=== PATIENT | female | born 1940 | race Caucasian/White ===

== ENCOUNTER 2021-02-07 09:57 | Outpatient (REF) | payer MEDICARE, SELFPAY ==
--- NOTE | ~2021-02-07 | XR_ITS ---
EXAMINATION: XR CHEST CLINICAL INFORMATION: Atelectasis COMPARISON: January 28, 2018 TECHNIQUE: 2 views of the chest were obtained. FINDINGS: There is no evidence of acute parenchymal disease, pneumothorax, or pleural effusion. Heart upper limits of normal in size. No evidence of pulmonary edema. Linear scarring is seen within the right middle lobe. Status post previous right upper quadrant surgery. XR/XR chest 2V IMPRESSION: No acute disease.
--- NOTE | ~2021-02-07 | XR_ITS ---
EXAMINATION: XR ABDOMEN KUB CLINICAL INDICATION: Renal calculus COMPARISON: None TECHNIQUE: AP view of the abdomen. FINDINGS: No dilated loops of large or small bowel are evident. Stool and gas is seen throughout nondilated colon. Patient status post right upper quadrant surgery. There is mild scoliosis of the lumbar spine convex left. Degenerative disc disease is seen L4-S1.There appears be osteopenia of visualized bones. There are some vascular calcifications seen about the pelvis with no definite renal or ureteral calculi seen on this plain film study. Psoas margins are intact. XR/XR KUB IMPRESSION: No definite renal or ureteral calculi appreciated.
[2021-02-07 11:00] LABS: Glucose Urine UA NEG (NEG); Leukocyte Esterase Urine NEG (NEG); Nitrite Urine NEG (NEG); Specific Gravity - Urine <= 1.005 (1.005-1.025); Urine Blood 1+ (NEG); Urine Ketones 5 MG/DL (NEG); Urine Protein NEG (NEG-TRACE)
[2021-02-07 11:02] LABS: Appearance Urine CLEAR; Color Urine YELLOW
[2021-02-07 11:19] LABS: Squamous Epithelial Cell Urine TRACE /LPF; WBC Urine 0 /HPF (0-4)
[2021-02-07 12:23] LABS: Folate 19.2 ng/mL (> or = 4.0); Vitamin B12 451 pg/mL (200-900)
[2021-02-07 13:23] LABS: Free T4 (Free Thyroxine) 0.99 ng/dL (0.71-1.85); TSH reflex Free T4 0.97 uIU/mL (0.32-4.0)
[2021-02-17 12:26] LABS: Vitamin D 25-OH, D2 <4 ng/mL; Vitamin D 25-OH, D3 53 ng/mL; Vitamin D 25-OH, Total 53 ng/mL (30-100)
== END 2021-02-07 09:58 | disposition home or self-care (01) ==
LOC: HO.LAB 09:57
PROVIDERS: PCP Internal Medicine; Visit Provider Internal Medicine
DX: E55.9 Vitamin D deficiency, unspecified (principal); R53.83 Other fatigue; J98.11 Atelectasis; N20.0 Calculus of kidney
CPT/HCPCS: 36415; 71046; 74018; 81001; 81003; 82306; 82607; 82746; 84439; 84443

== ENCOUNTER 2021-03-21 10:31 | Outpatient (REF) | payer MEDICARE, SELFPAY ==
[2021-03-21 13:27] LABS: MANUAL DIFF FLAG NO
[2021-03-21 13:29] LABS: Glucose Urine UA NEG (NEG); Hematocrit 41.4 % (37-47); Hemoglobin 13.4 g/dl (12.0-16.0); Leukocyte Esterase Urine NEG (NEG); Mean Corpuscular HGB Conc 32.4 g/dl (31.0-35.0); Mean Corpuscular Hemoglobin 30.7 pg (27.0-33.0); Nitrite Urine NEG (NEG); Red Blood Count 4.36 X10*6/uL (4.20-5.50); Red Cell Distribution Width 13.7 % (11.0-16.0); Specific Gravity - Urine 1.025 (1.005-1.025); Urine Blood TRACE (NEG); Urine Ketones 15 MG/DL (NEG); Urine Protein TRACE MG/DL (NEG-TRACE); White Blood Count 6.2 X10*3/uL (4.8-10.8)
[2021-03-21 13:30] LABS: Basophils Percent Auto 0.6 % (0-2); Eosinophils Absolute Auto 0.1 X10*3/uL (0.0-0.4); Eosinophils Percent Auto 1.8 % (0-4); Imm Gran Abs Auto 0.02 X10*3/uL (0.00-0.03); Imm Gran Pct Auto 0.3 % (0.0-0.4); Lymphocytes Absolute Auto 1.8 X10*3/uL (1.2-4.9); Lymphocytes Percent Auto 28.3 % (20-40); Mean Platelet Volume 10.5 fL (9.4-12.3); Monocytes Absolute Auto 0.6 X10*3/uL (0.1-1.2); Monocytes Percent Auto 9.2 % (2-11); Neutrophils Absolute Auto 3.7 X10*3/uL (2.0-8.3); Neutrophils Percent Auto 59.8 % (45-73); Platelet Count 245 X10*3/uL (160-400)
[2021-03-21 13:31] LABS: Appearance Urine CLEAR; Color Urine YELLOW
[2021-03-21 13:42] LABS: Mucus Urine TRACE /LPF; Squamous Epithelial Cell Urine 1+ /LPF; WBC Urine 0 /HPF (0-4)
[2021-03-21 14:00] LABS: Alanine Aminotransferase 19 U/L (0-31); Albumin Level 3.8 g/dL (3.5-5.0); Alkaline Phosphatase 68 U/L (39-117); Anion Gap 9 (12-20); Aspartate Amino Transferase 27 U/L (5-31); Bilirubin Total 0.7 mg/dL (0.0-1.0); Blood Urea Nitrogen 14 mg/dL (9-16); Calcium 9.1 mg/dL (8.4-10.2); Carbon Dioxide 28 mmol/L (22-29); Chloride 106 mmol/L (96-108); Cholesterol 162 mg/dL; Estimated Glomerular Filt Rate > 60; Glucose Fasting 81 mg/dL (60-99); HDL Cholesterol 63 mg/dL; LDL Cholesterol Calculated 89 mg/dl; Potassium 4.3 mmol/L (3.3-5.1); Sodium 139 mmol/L (135-145); Total Protein 6.4 g/dL (6.5-8.0); Triglycerides 53 mg/dL
[2021-03-21 14:35] LABS: Digoxin 0.8 ng/mL (0.8-2.0)
[2021-03-27 00:46] LABS: Vitamin D 25-OH, D2 <4 ng/mL; Vitamin D 25-OH, D3 49 ng/mL; Vitamin D 25-OH, Total 49 ng/mL (30-100)
== END 2021-03-21 10:32 | disposition home or self-care (01) ==
LOC: HO.WFDLDS 10:31
PROVIDERS: Visit Provider Internal Medicine
DX: D64.9 Anemia, unspecified (principal); J47.9 Bronchiectasis, uncomplicated; I48.91 Unspecified atrial fibrillation; E78.5 Hyperlipidemia, unspecified; E55.9 Vitamin D deficiency, unspecified; Z79.899 Other long term (current) drug therapy
CPT/HCPCS: 36415; 80053; 80061; 80162; 81001; 82306; 85025

== ENCOUNTER → 2021-06-08 10:21 | Outpatient (BNVA) | payer MEDICARE, SELFPAY | PROVIDERS: PCP Internal Medicine; Referring Provider Internal Medicine; Visit Provider Internal Medicine | DX: I48.19 Other persistent atrial fibrillation (principal) | CPT/HCPCS: 93005; 99212 ==

== ENCOUNTER 2021-06-15 14:05 | Emergency (ER) | payer MEDICARE, SELFPAY ==
--- NOTE | 2021-06-15 | ECG_ITS ---
Test Reason : DIZZINESS Blood Pressure : / mmHG Vent. Rate : 059 BPM Atrial Rate : 340 BPM P-R Int : 000 ms QRS Dur : 088 ms QT Int : 386 ms P-R-T Axes : 000 045 033 degrees QTc Int : 382 ms Atrial fibrillation with slow ventricular response Low voltage QRS Abnormal ECG When compared with ECG of 22-JUN-2005 08:09, Atrial fibrillation has replaced Sinus rhythm Referred By: Generic ED Physician Electronically Signed By:AIME JORDAN
[2021-06-15 14:28] VITALS: BP 150/44; PULSE 66; RESP 18; TEMP 36.7; O2SAT 96; BMI 21.6
[2021-06-15 16:00] VITALS: BP 131/66; PULSE 63; RESP 16; TEMP 36.5; O2SAT 99
--- NOTE | 2021-06-15 16:41 | ED_ITS ---
HPI - Dizziness General Chief Complaint: Dizziness Stated Complaint: dizziness Time Seen by Provider: 06/15/21 16:29 Source: patient Mode of arrival: ambulatory Limitations: no limitations History of Present Illness HPI Narrative: Patient with history of vertigo in the past was having facial earlier today lying on the bed for an hour flat when she stood up she felt lightheaded thing started spinning around specially on turning her head to left side associated with nausea. Patient does have history of chronic tinnitus bilateral also patient has a history of atrial fibrillation on Xarelto denies any headache or head injury no focal deficit no palpitation or chest pain no loss of consciousness otherwise patient has been feeling at her baseline Related Data Home Medications Medication Instructions Recorded Confirmed alendronate 70 mg tablet 70 mg PO QWEEK 06/30/20 06/08/21 cholecalciferol (vitamin D3) 25 25 mcg PO DAILY 06/30/20 06/08/21 mcg (1,000 unit) tablet digoxin 125 mcg (0.125 mg) tablet 125 mcg PO DAILY 06/30/20 06/08/21 flaxseed oil 1,000 mg capsule 1,000 mg PO DAILY cap 06/30/20 06/08/21 metoprolol succinate 50 mg 50 mg PO BID 06/30/20 06/08/21 tablet,extended release 24 hr omega 6-cok-edq-fish oil 1,200 mg cap PO 06/30/20 06/08/21 (144 mg-216 mg) capsule (Fish Oil) Previous Rx's Medication Instructions Recorded albuterol sulfate 90 mcg/actuation 1 inh INHALATION QID PRN 90 Days 08/15/20 aerosol inhaler #18 g rivaroxaban 20 mg tablet (Xarelto) 20 mg PO DAILY 90 Days #90 tab 03/23/21 meclizine 12.5 mg tablet 12.5 mg PO TID PRN #20 tab 06/15/21 Allergies Allergy/AdvReac Type Severity Reaction Status Date / Time Penicillins [PENICILLINS] Allergy Mild RASH Verified 06/15/21 14:28 Review of Systems Review of Systems: Yes all other systems are reviewed and are negative [facility] Past Medical History Medical History Atelectasis Atrial fibrillation Bronchiectasis Fatigue History of hyperparathyroidism History of skin cancer Hypovitaminosis D Osteoporosis Renal calculi Surgical History History of basal cell cancer History of section History of hemorrhoidectomy History of laparoscopic cholecystectomy History of parathyroidectomy History of tonsillectomy and adenoidectomy Family History Family History Father Bladder cancer Mother Lung cancer Brother Diabetes Maternal Grandmother Uterine cancer Paternal Grandmother Breast cancer Social History Social History Housing: House Alcohol intake: current Alcohol intake frequency: does not drink Alcohol type: wine Patient Tobacco Use Status: Never used Tobacco e-Cigarette/Vaping Use: Never Used Second Hand Smoke Exposure: No Use of substances other than those prescribed or required for medical reasons: No Advance Directives: No Advance Directives Information Provided: No service: No Current occupational status: retired Physical Exam Vital Signs: Vital Signs: Last Vital Signs Temp 97.7 F 06/15/21 16:00 Pulse 82 06/15/21 17:38 Resp 20 06/15/21 17:38 BP 143/62 H 06/15/21 17:38 Pulse Ox 96 06/15/21 17:38 Body Mass Index 21.6 Appearance: Alert. Oriented X3. No acute distress. Eyes: PERRLA, No Nystagmus more dizziness when turning her head to the left side ENT: Pharynx normal. Oral Mucosa moist Neck: Normal inspection. Neck supple. CVS: Irregularly irregular heart rate Pulses normal. Respiratory: No respiratory distress. Equal air entry bilateral, no wheezing/rales/rhonchi Abdomen: Soft and nontender. Bowel sounds are present, no mass palpable, no CVA tenderness Skin: Skin warm and dry. Normal skin color. Normal skin turgor. Extremities: No lower extremity edema. No calf tenderness Neuro: Oriented X 3. No motor deficit. No sensory deficit.No cerebellar signs , cranial nerves II-XII intact Course Reevaluation(s) Reevaluation #1: Patient with symptoms of benign positional vertigo labs workup is negative orthostatics negative patient was able to ambulate in the ER with assistance with similar history of vertigo in the past. Will discharge patient home on meclizine Time: 18:17 MDM - Dizziness Lab Data Attestation: I reviewed the patient's lab results. Result diagrams: 06/15/21 16:56 06/15/21 16:56 Labs: Lab Results 06/15/21 06/15/21 06/15/21 Range/Units 16:56 16:56 16:56 WBC 9.7 (4.8-10.8) X10*3/uL RBC 4.36 (4.20-5.50) X10*6/uL Hgb 13.5 (12.0-16.0) g/dl Hct 40.7 (37-47) % MCV 93.3 (80-98) fL MCH 31.0 (27.0-33.0) pg MCHC 33.2 (31.0-35.0) g/dl RDW 13.7 (11.0-16.0) % Plt Count 224 (160-400) X10*3/uL MPV 10.0 (9.4-12.3) fL Immature Gran % (Auto) 0.2 (0.0-0.4) % Neut % (Auto) 85.6 H (45-73) % Lymph % (Auto) 10.6 L (20-40) % [place] % (Auto) 3.2 (2-11) % Eos % (Auto) 0.1 (0-4) % Baso % (Auto) 0.3 (0-2) % Lymph # (Auto) 1.0 L (1.2-4.9) X10*3/uL [place] # (Auto) 0.3 (0.1-1.2) X10*3/uL Eos # (Auto) 0.0 (0.0-0.4) X10*3/uL Baso # (Auto) 0.0 (0.0-0.2) X10*3/uL Abs Immat Gran (auto) 0.02 (0.00-0.03) X10*3/uL Absolute Neuts (auto) 8.3 (2.0-8.3) X10*3/uL Absolute Nucleated RBC 0.000 (0.0-0.012) X10*3/uL Nucleated RBC % (auto) 0.0 (0.0-0.2) /100WBC Sodium 136 (135-145) mmol/L Potassium 4.1 (3.3-5.1) mmol/L Chloride 104 (96-108) mmol/L Carbon Dioxide 23 (22-29) mmol/L Anion Gap 13 (12-20) BUN 15 (9-16) mg/dL Creatinine 0.70 (0.5-1.4) mg/dL Estim Creat Clear Calc 42.9 Estimated GFR > 60 Random Glucose 106 (60-115) mg/dL Calcium 9.7 D (8.4-10.2) mg/dL Magnesium 2.0 (1.6-2.6) mg/dL Total Bilirubin 0.6 (0.0-1.0) mg/dL Direct Bilirubin 0.3 (0.0-0.5) mg/dL AST 23 (5-31) U/L ALT 20 (0-31) U/L Alkaline Phosphatase 76 (39-117) U/L Troponin I High Sens < 3.5 (<3.5-17.0) ng/L Total Protein 6.5 (6.5-8.0) g/dL Albumin 3.8 (3.5-5.0) g/dL Urine Color Urine Appearance Urine pH (5.0-8.0) Ur Specific [place] (1.005-1.025) Urine Protein (NEG-TRACE) MG/DL Urine Glucose (UA) (NEG) MG/DL Urine Ketones (NEG) MG/DL Urine Blood (NEG) Urine Nitrite (NEG) Ur Leukocyte Esterase (NEG) 06/15/21 Range/Units 17:49 WBC (4.8-10.8) X10*3/uL RBC (4.20-5.50) X10*6/uL Hgb (12.0-16.0) g/dl Hct (37-47) % MCV (80-98) fL MCH (27.0-33.0) pg MCHC (31.0-35.0) g/dl RDW (11.0-16.0) % Plt Count (160-400) X10*3/uL MPV (9.4-12.3) fL Immature Gran % (Auto) (0.0-0.4) % Neut % (Auto) (45-73) % Lymph % (Auto) (20-40) % [place] % (Auto) (2-11) % Eos % (Auto) (0-4) % Baso % (Auto) (0-2) % Lymph # (Auto) (1.2-4.9) X10*3/uL [place] # (Auto) (0.1-1.2) X10*3/uL Eos # (Auto) (0.0-0.4) X10*3/uL Baso # (Auto) (0.0-0.2) X10*3/uL Abs Immat Gran (auto) (0.00-0.03) X10*3/uL Absolute Neuts (auto) (2.0-8.3) X10*3/uL Absolute Nucleated RBC (0.0-0.012) X10*3/uL Nucleated RBC % (auto) (0.0-0.2) /100WBC Sodium (135-145) mmol/L Potassium (3.3-5.1) mmol/L Chloride (96-108) mmol/L Carbon Dioxide (22-29) mmol/L Anion Gap (12-20) BUN (9-16) mg/dL Creatinine (0.5-1.4) mg/dL Estim Creat Clear Calc Estimated GFR Random Glucose (60-115) mg/dL Calcium (8.4-10.2) mg/dL Magnesium (1.6-2.6) mg/dL Total Bilirubin (0.0-1.0) mg/dL Direct Bilirubin (0.0-0.5) mg/dL AST (5-31) U/L ALT (0-31) U/L Alkaline Phosphatase (39-117) U/L Troponin I High Sens (<3.5-17.0) ng/L Total Protein (6.5-8.0) g/dL Albumin (3.5-5.0) g/dL Urine Color YELLOW Urine Appearance CLEAR Urine pH 6.0 (5.0-8.0) Ur Specific [place] 1.020 (1.005-1.025) Urine Protein NEG (NEG-TRACE) MG/DL Urine Glucose (UA) NEG (NEG) MG/DL Urine Ketones 40 (NEG) MG/DL Urine Blood NEG (NEG) Urine Nitrite NEG (NEG) Ur Leukocyte Esterase NEG (NEG) ECG Data Attestation: I personally reviewed and interpreted this ECG as follows: Interpretation: Atrial fibrillation with heart rate [address] T wave changes no acute ischemia Discharge Plan Discharge Clinical Impression: Benign paroxysmal positional vertigo Patient Disposition: Home, Self-Care Instructions: Benign Paroxysmal Positional Vertigo (ED) Additional Instructions: Care and cautions as advised Take medication for dizziness Report to the ER/pcpif worsening of symptoms Prescriptions: New meclizine 12.5 mg tablet 12.5 mg PO TID PRN (Reason: dizziness) Qty: 20 RF: 0 No Action albuterol sulfate 90 mcg/actuation HFA aerosol inhaler 1 inh inhalation QID PRN (Reason: shortness of breath or wheezing) 90 Days Qty: 18 RF: 3 Xarelto 20 mg tablet 20 mg PO DAILY 90 Days Qty: 90 RF: 1 digoxin 125 mcg (0.125 mg) tablet 125 mcg PO DAILY RF: 0 metoprolol succinate 50 mg tablet extended release 24 hr 50 mg PO BID RF: 0 alendronate 70 mg tablet 70 mg PO QWEEK RF: 0 cholecalciferol (vitamin D3) 25 mcg (1,000 unit) tablet 25 mcg PO DAILY RF: 0 flaxseed oil 1,000 mg capsule 1,000 mg PO DAILY RF: 0 omega 9-okg-qbp-fish oil [Fish Oil] 1,200 (144-216) mg capsule PO RF: 0 Interventions: ED Discharge Assessment Last Done: 06/15/21 18:34 Discharge Date/Time: 06/15/21 18:39
[2021-06-15 16:58] VITALS: BP 153/54; PULSE 77
[2021-06-15 16:59] VITALS: BP 141/65; PULSE 73
[2021-06-15 17:00] VITALS: BP 154/57; PULSE 62
[2021-06-15 17:01] LABS: MANUAL DIFF FLAG NO
[2021-06-15 17:03] LABS: Basophils Percent Auto 0.3 % (0-2); Eosinophils Percent Auto 0.1 % (0-4); Hematocrit 40.7 % (37-47); Hemoglobin 13.5 g/dl (12.0-16.0); Imm Gran Abs Auto 0.02 X10*3/uL (0.00-0.03); Imm Gran Pct Auto 0.2 % (0.0-0.4); Lymphocytes Percent Auto 10.6 % (20-40); Mean Corpuscular HGB Conc 33.2 g/dl (31.0-35.0); Mean Corpuscular Volume 93.3 fL (80-98); Monocytes Absolute Auto 0.3 X10*3/uL (0.1-1.2); Monocytes Percent Auto 3.2 % (2-11); Neutrophils Absolute Auto 8.3 X10*3/uL (2.0-8.3); Neutrophils Percent Auto 85.6 % (45-73); Platelet Count 224 X10*3/uL (160-400); Red Blood Count 4.36 X10*6/uL (4.20-5.50); Red Cell Distribution Width 13.7 % (11.0-16.0); White Blood Count 9.7 X10*3/uL (4.8-10.8)
[2021-06-15 17:21] LABS: Alanine Aminotransferase 20 U/L (0-31); Albumin Level 3.8 g/dL (3.5-5.0); Alkaline Phosphatase 76 U/L (39-117); Anion Gap 13 (12-20); Aspartate Amino Transferase 23 U/L (5-31); Bilirubin Direct 0.3 mg/dL (0.0-0.5); Bilirubin Total 0.6 mg/dL (0.0-1.0); Blood Urea Nitrogen 15 mg/dL (9-16); Calcium 9.7 mg/dL (8.4-10.2); Carbon Dioxide 23 mmol/L (22-29); Chloride 104 mmol/L (96-108); Creatinine Clr Calc Pharmacy 42.9; Estimated Glomerular Filt Rate > 60; Glucose Random 106 mg/dL (60-115); Potassium 4.1 mmol/L (3.3-5.1); Sodium 136 mmol/L (135-145); Total Protein 6.5 g/dL (6.5-8.0)
[2021-06-15 17:25] LABS: Troponin-I High Sensitivity < 3.5 ng/L (<3.5-17.0)
[2021-06-15] MEDS: Meclizine HCl 25 MG TABLET PO (17:31)
[2021-06-15 17:38] VITALS: BP 143/62; PULSE 82; RESP 20; O2SAT 96
[2021-06-15 18:35] LABS: Appearance Urine CLEAR; Color Urine YELLOW; Glucose Urine UA NEG (NEG); Leukocyte Esterase Urine NEG (NEG); Nitrite Urine NEG (NEG); Urine Blood NEG (NEG); Urine Ketones 40 MG/DL (NEG); Urine Protein NEG (NEG-TRACE)
== END 2021-06-15 18:39 | disposition home or self-care (01) ==
PROVIDERS: Physician Assistant; Emergency Provider Internal Medicine; PCP Internal Medicine
DX: H81.13 Benign paroxysmal vertigo, bilateral (principal); I48.91 Unspecified atrial fibrillation; Z79.899 Other long term (current) drug therapy
CPT/HCPCS: 36415; 80048; 80076; 81003; 83735; 84484; 85025; 93005; 99283; 99284

== ENCOUNTER 2022-01-29 09:21 | Outpatient (REF) | payer MEDICARE, SELFPAY ==
[2022-01-29 11:23] LABS: MANUAL DIFF FLAG NO
[2022-01-29 11:38] LABS: Basophils Percent Auto 0.5 % (0-2); Eosinophils Absolute Auto 0.1 X10*3/uL (0.0-0.4); Eosinophils Percent Auto 2.3 % (0-4); Hematocrit 43.6 % (37.0-47.0); Imm Gran Abs Auto 0.01 X10*3/uL (0.00-0.03); Imm Gran Pct Auto 0.2 % (0.0-0.4); Lymphocytes Absolute Auto 1.7 X10*3/uL (1.2-4.9); Lymphocytes Percent Auto 30.7 % (20-40); Mean Corpuscular HGB Conc 32.1 g/dl (31.0-35.0); Mean Corpuscular Hemoglobin 30.2 pg (27.0-33.0); Mean Platelet Volume 10.8 fL (9.4-12.3); Monocytes Absolute Auto 0.5 X10*3/uL (0.1-1.2); Neutrophils Absolute Auto 3.2 x10*3/uL (2.0-8.3); Neutrophils Percent Auto 57.3 % (45-73); Platelet Count 239 X10*3/uL (160-400); Red Blood Count 4.64 X10*6/uL (4.20-5.50); White Blood Count 5.7 X10*3/uL (4.8-10.8)
[2022-01-29 11:49] LABS: Appearance Urine CLEAR; Color Urine YELLOW; Glucose Urine UA NEG (NEG); Leukocyte Esterase Urine NEG (NEG); Nitrite Urine NEG (NEG); PH 6.5 (5.0-8.0); UACC Culture Trigger NO; Urine Blood NEG (NEG); Urine Ketones 5 MG/DL (NEG); Urine Protein 1+ MG/DL (NEG-TRACE)
[2022-01-29 11:50] LABS: Alanine Aminotransferase 21 U/L (0-31); Alkaline Phosphatase 69 U/L (39-117); Anion Gap 11 (12-20); Aspartate Amino Transferase 27 U/L (5-31); Bilirubin Total 0.8 mg/dL (0.0-1.0); Blood Urea Nitrogen 12 mg/dL (9-16); Calcium 10.1 mg/dL (8.4-10.2); Carbon Dioxide 29 mmol/L (22-29); Chloride 104 mmol/L (96-108); Cholesterol 190 mg/dL; Estimated Glomerular Filt Rate > 60; Glucose Fasting 84 mg/dL (60-99); HDL Cholesterol 68 mg/dL; LDL Cholesterol Calculated 111 mg/dl; Potassium 4.2 mmol/L (3.3-5.1); Sodium 140 mmol/L (135-145); Total Protein 6.8 g/dL (6.5-8.0); Triglycerides 57 mg/dL
[2022-01-29 12:05] LABS: Digoxin < 0.3 ng/mL (0.8-2.0)
[2022-01-29 12:25] LABS: RBC Urine 0-2 /HPF (0); Squamous Epithelial Cell Urine 1+ /LPF; WBC Urine 0-2 /HPF (0-4)
[2022-02-01 16:54] LABS: Vitamin D 25-OH, D2 <4 ng/mL; Vitamin D 25-OH, D3 35 ng/mL; Vitamin D 25-OH, Total 35 ng/mL (30-100)
== END 2022-01-29 09:22 | disposition home or self-care (01) ==
LOC: HO.WFDLDS 09:21
PROVIDERS: Visit Provider Internal Medicine
DX: I48.19 Other persistent atrial fibrillation (principal); E55.9 Vitamin D deficiency, unspecified; Z79.899 Other long term (current) drug therapy; Z51.81 Encounter for therapeutic drug level monitoring
CPT/HCPCS: 36415; 80053; 80061; 80162; 81001; 81003; 82306; 84443; 85025

== ENCOUNTER → 2022-02-08 13:21 | Outpatient (BNVA) | payer MEDICARE, SELFPAY | PROVIDERS: PCP Internal Medicine; Referring Provider Internal Medicine; Visit Provider Internal Medicine | DX: I48.19 Other persistent atrial fibrillation (principal); Z79.01 Long term (current) use of anticoagulants; Z79.899 Other long term (current) drug therapy | CPT/HCPCS: 99212 ==

== ENCOUNTER 2022-06-05 10:17 | Outpatient (REF) | payer MEDICARE, SELFPAY ==
--- NOTE | ~2022-06-05 | MM_ITS ---
EXAMINATION: BONE DENSITOMETRY CLINICAL INDICATION: Age-related osteoporosis without current pathological fracture. COMPARISON: Previous BD dated 05/31/2020 and baseline BD dated 02/25/2009. TECHNIQUE: Using a [employer] DXA System (software version: 13.1) manufactured by [employer], dual-energy x-ray absorptiometry was performed of the lumbar spine and left hip. The images are of good technical quality. Summary results are attached. FINDINGS: AP SPINE L1-L4: Current: BMD 1.038 g/cm2, Z-score 1.2, T-score -1.2, osteopenia, 4.5% increase from previous, 7.2% increase from baseline (<5% change is not significant). Prior: BMD 0.993 g/cm2. Baseline: BMD 0.968 g/cm2. LEFT FEMUR, NECK: Current: BMD 0.721 g/cm2, Z-score 0.3, T-score -2.3, osteopenia. Prior: BMD 0.720 g/cm2. Baseline: BMD 0.771 g/cm2. LEFT FEMUR, TOTAL: Current: BMD 0.683 g/cm2, Z-score -0.1, T-score -2.6, osteoporosis, 3.5% increase from previous, 10.0% decrease from baseline (<5% change is not significant). Prior: BMD 0.660 g/cm2. Baseline: BMD 0.759 g/cm2. IDENTIFIED RISK FACTORS: Menopause, height loss, osteoporosis. HISTORY OF FRACTURE: None listed. MEDICATIONS: Calcium supplements or multivitamin, vitamin D, bisphosphonate. MM/XR DEXA axial skeleton IMPRESSION: 1. DIAGNOSIS: Osteoporosis based on the lowest T-score value of -2.6 in the total femur applying World Health Organization criteria. 2. 10-YEAR FRACTURE RISK PREDICTION, FRAX: According to the guidelines, FRAX calculation should only be performed on patients in the osteopenia bone density category. Therefore, FRAX was not performed on this patient. 3. Treatment Recommendations: NOF guidelines recommend consideration for treatment in postmenopausal women and men age 50 and older presenting with the following: -A hip or vertebral (clinical or morphometric) fracture. -T-score less than or equal to -2.5 at the femoral neck or spine after appropriate evaluation to exclude secondary causes. -Low bone mass at the hip or spine and a 10-year fracture probability by FRAX of greater than or equal to 3% for hip fracture or greater than or equal to 20% for major osteoporotic fracture based on the [place] adapted WHO algorithm. 4. Other Recommendations: All treatment decisions require clinical judgment and consideration of individual patient factors, including patient preferences, comorbidities, previous drug use, risk factors not captured in the FRAX model (e.g. frailty, falls, vitamin D deficiency, increased bone turnover, interval significant decline in bone density) and possible under or overestimation of fracture risk by FRAX. Additional medical evaluation for secondary cause of low bone mineral density may be appropriate. FUTURE SCAN RECOMMENDATION: People with diagnosed cases of osteoporosis or at high risk for fracture should have regular bone mineral density tests. For patients eligible for Medicare, routine testing is allowed once every 2 years. The testing frequency can be increased to one year for patients who have rapidly progressing disease, those who are receiving or discontinuing medical therapy to restore bone mass, or have additional risk factors.
== END 2022-06-05 10:18 | disposition home or self-care (01) ==
LOC: HO.MAMMO 10:17
PROVIDERS: Visit Provider Internal Medicine
DX: Z13.820 Encounter for screening for osteoporosis (principal); M81.0 Age-related osteoporosis without current pathological fracture; Z78.0 Asymptomatic menopausal state
CPT/HCPCS: 77080

== ENCOUNTER 2023-05-14 12:10 | Outpatient (AMB) | payer MEDICARE, SELFPAY ==
--- NOTE | 2023-05-14 12:29 | MHC.OFFVIS ---
Intake Vital Signs 05/14/23 12:30 Height 4 ft 11.5 in Weight 104 lb 7.986 oz BMI 20.8 BP 100/60 Blood Pressure Location Lt brachial Position Sitting Pulse 73 Intake Visit Reasons: 1 year follow up Intake Note: 1 year follow up w/ EKG Customer Engagement Specialist Required: No Accompanied by: Self / Same As Patient Allergies Penicillins [PENICILLINS] Allergy (Mild, Verified 05/14/23 12:33) RASH Medication List - Last Reconciled 05/14/23 by Mina Brown MD albuterol sulfate 90 mcg/actuation 1 inh inhalation QID PRN 90 days alendronate 70 mg PO QWEEK cholecalciferol (vitamin D3) 25 mcg PO DAILY digoxin 125 mcg PO DAILY flaxseed oil 1,000 mg PO DAILY meclizine 12.5 mg PO TID PRN 30 days metoprolol succinate ER 50 mg PO BID omega 0-agp-nxh-fish oil 1,200 (144-216) mg (Fish Oil) caps PO rivaroxaban (Xarelto) 20 mg PO DAILY 90 days HPI HPI Comments History of Present Illness Details Carolann returns for follow-up regarding atrial fibrillation. She continues to divide her time between [place] and [place]. 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 History of atrial fibrillation with rapid rate that led to cardioversion. Per patient last only for short time and hence she is being maintained on rate control rather. On beta-blockers/digoxin/Xarelto. According to her, meds are prescribed through her own bank president in [place]. Digoxin level is also checked through them. Overall, she states she is doing okay. No specific complaints like angina or shortness of breath or in fact anything cardiac sounding. She also has other issues like bronchiectasis of unknown etiology. REPLACED BY [facility] Medical History Atelectasis Atrial fibrillation Bronchiectasis Fatigue History of hyperparathyroidism History of skin cancer Hypovitaminosis D Osteoporosis Renal calculi Vertigo Surgical History History of basal cell cancer History of section History of hemorrhoidectomy History of laparoscopic cholecystectomy History of parathyroidectomy History of tonsillectomy and adenoidectomy Family History Father Bladder cancer Mother Lung cancer Brother Diabetes Maternal Grandmother Uterine cancer Paternal Grandmother Breast cancer Social History (Updated 05/14/23 @ 12:34 by Anna Marie Hickey) Housing: House Alcohol intake: current Alcohol intake frequency: 0-2 drinks per day Alcohol type: wine Patient Tobacco Use Status: Never used Tobacco e-Cigarette/Vaping Use: Never Used Second Hand Smoke Exposure: No service: No Current occupational status: retired Review of Systems Const Denies weakness ENT Denies dizziness Card Denies chest pain, Denies chest pain with activity, Denies syncope, Denies rapid heart rate, Denies pedal edema, Denies edema, Denies leg edema, Denies lightheadedness, Denies palpitations, Denies dyspnea, Denies dyspnea on exertion and Denies orthopnea Resp Denies cough, Denies dyspnea and Denies dyspnea on exertion GI Denies hematochezia and Denies change in stool character Musc Denies abnormal gait, Denies muscle cramps, Denies muscle weakness, Denies numbness, Denies radiating pain into limb and Denies tingling Neuro Denies abnormal gait, Denies dizziness, Denies syncope, Denies numbness, Denies tingling and Denies weakness Endo Denies palpitations Physical Exam Vital Signs: Last Vital Signs Pulse 73 05/14/23 12:30 BP 100/60 05/14/23 12:30 BMI result Body Mass Index 20.8 Const General: comfortable and no acute distress Orientation/consciousness: patient oriented x3 HEENT Other: Unremarkable Head: Yes normal to inspection Neck Neck: Yes normal visual inspection Chest Chest palpation & inspection: normal inspection of the chest Resp Auscultation: clear to auscultation bilaterally Cardio Palpation: normal PMI Heart sounds: S1 normal heart sound present, S2 normal heart sound present, no gallops, no murmurs and no rubs GI Palpation (GI): Soft to palpation Back/Spine/Pelvis Other: unremarkable Skin General skin exam: no rashes or lesions noted Neuro General: patient oriented x3 Extrem General: Yes normal to inspection Psych Mental Status: mental status grossly normal Office Procedures EKG Details: EKG with atrial fibrillation at a rate of 73/Min. 63353-[id number], Complete Assessment & Plan Assessment & Plan (1) Persistent atrial fibrillation: Code(s): I48.19 - Other persistent atrial fibrillation Plan Pertinent data reviewed. Last available echocardiogram with LVEF 55-60%; [id number] mitral regurgitation; mild tricuspid regurgitation and interatrial septal aneurysm. Myocardial perfusion imaging study with artifact from breast attenuation but otherwise unremarkable. Labs from [place] also reviewed. Hemoglobin is 13.3. Digoxin level 0.8. Overall, generally seems stable. May continue the current regimen. She would like to still see as when she comes to [place], once a year. Orders: Orders CA echo transthoracic complete Today I48.19 - Other persistent atrial fibrillation Coding Level of Care Code Est Pt Level 3 (42706) Diagnoses Persistent atrial fibrillation I48.19 CPT Codes EKG - CPT: 82082-[id number], Complete ([id number])
[2023-05-14 12:30] VITALS: BP 100/60; PULSE 73; BMI 20.8
== END 2023-05-14 12:49 | disposition home or self-care (01) ==
PROVIDERS: PCP Internal Medicine; Referring Provider Internal Medicine; Visit Provider Internal Medicine
DX: I48.19 Other persistent atrial fibrillation (principal)
CPT/HCPCS: 93010; 99213

== ENCOUNTER → 2023-05-14 12:10 | Outpatient (BNVA) | payer MEDICARE, SELFPAY | PROVIDERS: PCP Internal Medicine; Referring Provider Internal Medicine; Visit Provider Internal Medicine | DX: I48.19 Other persistent atrial fibrillation (principal); Z79.01 Long term (current) use of anticoagulants; Z79.899 Other long term (current) drug therapy | CPT/HCPCS: 93005; 99212 ==

== ENCOUNTER → 2023-06-11 10:54 | Outpatient (REF) | payer MEDICARE, SELFPAY ==
--- NOTE | 2023-06-11 10:56 | CA_ITS ---
Transthoracic Echocardiogram Patient (Last, First, Middle): Carolann Mejia S Gender: Female Date of : 1940 Age: 82 Procedure Date: 06/11/2023 Procedure Type: Transthoracic Echocardiogram Location: OP Height: 149.86 cm Weight: 49.9 kg BSA: 1.43 m2 Heart Rate: bpm BP: 130 / 70 mmHg Behavioral Assistant: JHOANA/OLIMPIA Referring MD: Mina Brown MD Tool And Gauge Inspector: Sandro Stevens MD Symptoms: I48.19 - Other persistent atrial fibrillation Study Quality: Adequate ECG Rhythm: Atrial Fibrillation Conclusions: - 1. Normal LV ejection fraction of 65-70% with elevated filling pressures 2. Severely dilated left atrium 3. Cardiac valvular Dopplers within normal limits 4. Normal RV systolic pressure Findings Left Ventricle Normal left ventricular size, thickness, and systolic function. The visually estimated ejection fraction is between 65-70%. Elevated filling pressures. Right Ventricle Normal right ventricular cavity size and systolic function. Atria The left atrium is severely dilated. Interatrial shunt cannot be excluded. The right atrium is mildly dilated. Aortic Valve Normal aortic valve structure and function. There is no aortic valve stenosis. There is no aortic valve regurgitation. Mitral Valve There is mild anterior mitral leaflet thickening. There is mild mitral annular calcification. There is trace mitral valve regurgitation. There is no mitral valve stenosis. Pulmonic Valve The pulmonic valve was not well visualized. Tricuspid Valve Normal tricuspid valve structure. There is trace tricuspid valve regurgitation. The right ventricular systolic pressure is 29 mmHg. Normal right atrial pressure. There is no evidence of pulmonary hypertension. Great Vessels All visible segments of the aorta are normal in size. The pulmonary artery was not well visualized. Venous The inferior vena cava is mildly dilated and collapses greater than 50% with inspiration. Pericardium/Pleural There is no evidence of pericardial effusion. Prior Study Comparison Changes noted compared to prior study dated: 03/13/2016. Patient noted to be in atrial fibrillation on this study. Left atrial pressures seem to be elevated Measurements 2D Linear Measurements IVSd: 0.84 0.6-0.9/0.6-1.0 cm LVIDd: 3.92 3.9-5.3/4.2-5.9 cm LVIDd Index: 2.74 2.4-3.2/2.2-3.1 cm/m2 LVIDs: 2.57 2.0-3.6 cm LVPWd: 0.91 0.7-1.1 cm LA Diam: 2.70 2.7-3.8/3.0-4.0 cm LAIDs Index: 1.89 1.5-2.3 cm/m2 LV Mass: 126.73 67-162/88-224 g LV Mass Index: 88.62 43-95/49-115 g/m2 LVOT Diam: 1.80 3.0+(-)1.3 cm 2D Systolic Function EF 4C: 75.40 >55% EF 2C: 66.40 >55% EF BiP: 71.10 >55% Mitral Valve MV Pk E: 1.58 MV Decel Time: 166.00 E'Lateral: 10.50 E'Medial: 7.68 E/E' Med: 20.60 E/E' Lat: 15.00 PHT: 49.00 MVA PHT: 4.49 Decel [place]: 9.73 Aortic Valve AoV Pk Sven: 1.58 AoV Pk Grad: 10.00 LVOT LVOT Pk Sven: 0.87 LVOT Pk Grad: 3.00 LVOT Diam: 1.80 LVOT Area: 2.54 Diastolic Function MV Pk E: 1.58 E'Medial: 7.68 E/E' Med: 20.60 E' Laterial: 10.50 E/E' Lat: 15.00 Right Ventricle TAPSE (mm): 13.80 TVS' Sven: 7.83 Tricuspid Valve TR Pk Sven: 2.54 TR Pk Grad: 26.00 RA Press: 3.00 RVSP: 29.00 Great Vessels Aorta Sinus of Valsalva: 2.98 2.0-3.[address] [place]: 2.59 1.7-3.4 cm Ao Asc: 2.80 2.1-3.4 cm Updated in Other Vendor System with Status of Final Sandro Stevens MD electronically signed on 06/12/2023 2:27:49 PM with status of Final
== END ==
LOC: HO.CARD 10:54
PROVIDERS: PCP Internal Medicine; Visit Provider Internal Medicine
DX: I48.19 Other persistent atrial fibrillation (principal)
CPT/HCPCS: 93306

== ENCOUNTER → 2023-06-11 10:56 | Outpatient (BNV) | payer MEDICARE, SELFPAY | PROVIDERS: PCP Internal Medicine; Visit Provider Internal Medicine Cardiovascular Disease | DX: I48.19 Other persistent atrial fibrillation (principal) | CPT/HCPCS: 93306 ==

== ENCOUNTER 2024-01-29 10:09 | Outpatient (AMB) | payer MEDICARE, SELFPAY ==
--- NOTE | 2024-01-29 10:09 | A.OFFPC_ITS ---
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 Accompanied by: Self / Same As Patient Allergies Penicillins [PENICILLINS] Allergy (Mild, Verified 01/29/24 10:25) RASH Medication List - Last Reconciled 01/29/24 by Anika Huntley MD albuterol sulfate 90 mcg/actuation 1 inh inhalation QID PRN 90 days alendronate 70 mg PO QWEEK cholecalciferol (vitamin D3) 25 mcg PO DAILY digoxin 125 mcg PO DAILY flaxseed oil 1,000 mg PO DAILY meclizine 12.5 mg PO TID PRN 30 days metoprolol succinate ER 50 mg PO BID ijmxtnku-ifq-bzum-FA-vit K-lut 8 mg iron-400 mcg-50 mcg (Centrum Silver Women) 1 tab PO .every other day omega 5-pbr-jlf-fish oil 1,200 (144-216) mg (Fish Oil) caps PO rivaroxaban (Xarelto) 20 mg PO DAILY 90 days Tobacco use date assessed: 01/29/24 Fall risk assessment: No Falls in past year Last assessed Fall Risk: 01/29/24 Dental Screening Dental Screen Date: 01/29/24 Did you have a dental visit in the last 12 months?: Yes Did you have a dental problem in the last 6 months where you did not have access to dental care?: No Was dental information given to patient?: Patient has dentist HPI HPI Comments History of Present Illness Details This is an 83-year-old female with persistent atrial fibrillation on chronic anticoagulation, osteoporosis, bronchiectasis and low vitamin-D that comes today for follow-up on her conditions. On metoprolol for atrial fibrillation that is follow by cardiology and the goal is heart rate control. Last DEXA scan was done May 2022 and next DEXA scan will be done May 2024. On alendronate once a week for her osteoporosis. She follows with endocrinology for this matter. Bronchiectasis he is follow by pulmonology in [place]. On vitamin-D supplements for her low vitamin-D. Denies any chest pain or shortness of breath. No abdominal pain or leg swelling. [facility] Medical History (Updated 01/29/24 @ 11:42 by Anika Huntley MD) Vertigo Hypovitaminosis D Atelectasis Fatigue History of hyperparathyroidism Renal calculi Bronchiectasis History of skin cancer Osteoporosis Atrial fibrillation Surgical History History of basal cell cancer History of parathyroidectomy History of laparoscopic cholecystectomy History of hemorrhoidectomy History of section History of tonsillectomy and adenoidectomy Family History Father Bladder cancer Mother Lung cancer Brother Diabetes Maternal Grandmother Uterine cancer Paternal Grandmother Breast cancer Social History Housing: House Alcohol intake: current Alcohol intake frequency: 0-2 drinks per day Alcohol type: wine Patient Tobacco Use Status: Never used Tobacco e-Cigarette/Vaping Use: Never Used Second Hand Smoke Exposure: No service: No Current occupational status: retired Cognitive needs: No Hearing needs: No Vision needs: Yes Questionnaire PHQ-9 Over the last 2 weeks, how often have you been bothered by any of the following problems? 1. Little interest or pleasure in doing things: not at all 2. Feeling down, depressed, or hopeless: not at all 3. Trouble falling or staying asleep, or sleeping too much: not at all 4. Feeling tired or having little energy: not at all 5. Poor appetite or overeating: not at all 6. Feeling bad about yourself - or that you are a failure or have let yourself or your family down: not at all 7. Trouble concentrating on things, such as reading the newspaper or watching television: not at all 8. Moving or speaking so slowly that other people could have noticed. Or the opposite - being so fidgety or restless that you have been moving around a lot more than usual: not at all 9. Thoughts that you would be better off or of hurting yourself in some way: not at all Total score: 0 Depression Screening Interpretation: Negative Depression Screening Done: Yes [id number] - PHQ-9 Billing: Yes Source: Developed by Drs. Arnol L. Herlinda Jauregui Kurt Kroenke and colleagues, with an educational flores from [employer]. Thrive Questionnaire Date Thrive assessed: 01/29/24 I am a: Patient What is your living situation today?: I have a steady place to live Within the past 12 months, did the food you bought not last and you didn't have the money to get more?: Never true Within the past 12 months, did you worry whether your food would run out before you got money to buy more?: Never true Do you have trouble paying for medicines?: No Do you have trouble getting transportation to medical appointments?: No Do you have trouble paying your heating and electricity bill?: No Do you have trouble taking care of your child, family member or friend?: No Do you have trouble with day-to-day activities such as bathing, preparing meals, shopping, managing finances, etc.?: No Are you currently unemployed and looking for a job?: No Are you interested in more education?: No Please select the resources that you would like help with: None Currently or been in a relationship where the following occur: no concerns reported THRIVE Score: 0 AUDIT C Alcohol Use Questionnaire (AUDIT-C) 1. How often do you have a drink containing alcohol?: 4 or more times a week 2. How many drinks containing alcohol do you have on a typical day when you are drinking?: 1 or 2 3. How often do you have six or more drinks on one occasion?: Never Total Score: 4 HERNAN-7 AMB Questionnaire HERNAN-7 Date HERNAN - 7 assessed: 01/29/24 Feeling nervous, anxious, or on edge: 0 = Not at all Not being able to stop or control worryin = Not at all Worrying too much about different things: 0 = Not at all Trouble relaxin = Not at all Being so restless that it is hard to sit still: 0 = Not at all Becoming easily annoyed or irritable: 0 = Not at all Feeling afraid as if something awful might happen: 0 = Not at all Total HERNAN-7 score (0-4 normal; 5-9 mild; 10-14 moderate; 15-21 severe): 0 Source: Developed by Herlinda Shaikh Kurt Kroenke and colleagues, with an educational flores from [employer]. HERNAN-7 Assessment Billing HERNAN-7 Assessment Tool: HERNAN-7 Assessment 47456 Review of Systems Const All systems reviewed & are unremarkable except as noted in HPI and below Card Denies chest pain at rest, Denies chest pain with activity, Denies edema, Denies irregular heart rhythm, Denies dyspnea, Denies dyspnea on exertion, Denies orthopnea, Denies paroxysmal nocturnal dyspnea and Denies slow heart rate Resp Denies cough, Denies dyspnea and Denies dyspnea on exertion GI Denies abdominal pain, Denies change in bowel habits, Denies excessive flatus, Denies nausea and Denies vomiting Denies urinary incontinence, Denies urinary hesitancy and Denies urinary urgency Physical exam (Primary Care) Vital Signs: Last Vital Signs BP 124/70 01/29/24 10:11 BMI result Body Mass Index 20.7 Tobacco/Smoking Status: Tobacco use Status Tobacco use date assessed 01/29/24 01/29/24 10:18 Patient Tobacco Use Status Never used Tobacco 01/29/24 10:18 e-Cigarette/Vaping Use Never Used 01/29/24 10:18 PHQ-9: PHQ-9 Score PHQ-9: Total score 0 01/29/24 10:27 Depression Screening Interpretation: Negative Thrive Assessment: Date of Thrive Assessment Date Thrive assessed 01/29/24 01/29/24 10:18 Currently or been in a relationship where the following occur: no concerns reported Resp Effort & Inspection: normal respiratory effort Auscultation: clear to auscultation bilaterally Cardio Jugular venous distension: no JVD Rate: regular rate Rhythm: regular rhythm Heart sounds: S1 normal heart sound present and S2 normal heart sound present GI Inspection: Yes normal to inspection Palpation (GI): Soft to palpation and nontender Auscultation: normal bowel sounds Neuro General: no focal motor deficits Extrem General: Yes full ROM Psych Appearance: grossly normal Assessment and Plan Assessment & Plan (1) Persistent atrial fibrillation: Code(s): I48.19 - Other persistent atrial fibrillation Plan: Continue metoprolol and Xarelto. Follow-up with Cardiology. The goal is heart rate control. (2) Bronchiectasis: Code(s): J47.9 - Bronchiectasis, uncomplicated Qualifiers: Bronchiectasis type: uncomplicated Qualified Code(s): J47.9 - Bronchiectasis, uncomplicated Plan: Follow-up with pulmonology. (3) Osteoporosis: Code(s): M81.0 - Age-related osteoporosis without current pathological fracture Qualifiers: Osteoporosis type: age-related Presence of current pathological fracture: without current pathological fracture Qualified Code(s): M81.0 - Age- related osteoporosis without current pathological fracture Plan: Continue alendronate once a week. Repeat DEXA scan May 2024. Follow-up with endocrinology. (4) Hypovitaminosis D: Code(s): E55.9 - Vitamin D deficiency, unspecified Plan: Continue vitamin-D supplements. Medications: Discontinued meclizine Discontinued Reason: Patient Refused 12.5 mg PO TID 30 days PRN 90 tabs 1RF dizziness Coding Level of Care Code Est Pt Level 4 (80533) Diagnoses Persistent atrial fibrillation I48.19 Bronchiectasis without complication J47.9 Bronchiectasis type: uncomplicated Age-related osteoporosis without current pathological fracture M81.0 Osteoporosis type: age-related Presence of current pathological fracture: without current pathological fracture Hypovitaminosis D E55.9 Additional Codes HERNAN-7 Assessment Billing - HERNAN-7 Assessment Tool: HERNAN-7 Assessment [id number] ([id number]) Time Spent (min) 25
[2024-01-29 10:11] VITALS: BP 124/70; BMI 20.7
== END 2024-01-29 10:42 | disposition home or self-care (01) ==
PROVIDERS: PCP Internal Medicine; Visit Provider Internal Medicine
DX: I48.19 Other persistent atrial fibrillation (principal); J47.9 Bronchiectasis, uncomplicated; M81.0 Age-related osteoporosis without current pathological fracture; E55.9 Vitamin D deficiency, unspecified
CPT/HCPCS: 99214

== ENCOUNTER 2024-03-03 10:14 | Outpatient (AMB) | payer MEDICARE, SELFPAY ==
[2024-03-03 10:18] VITALS: BP 124/62; PULSE 60; BMI 31.6
--- NOTE | 2024-03-03 10:18 | MHC.OFFVIS ---
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 Allergies Penicillins [PENICILLINS] Allergy (Mild, Verified 03/03/24 10:20) RASH Medication List - Last Reconciled 03/03/24 by Mina Brown MD albuterol sulfate 90 mcg/actuation 1 inh inhalation QID PRN 90 days alendronate 70 mg PO QWEEK cholecalciferol (vitamin D3) 25 mcg PO DAILY digoxin 125 mcg PO DAILY flaxseed oil 1,000 mg PO DAILY metoprolol succinate ER 50 mg PO BID bszlpmqg-tkt-vlbk-FA-vit K-lut 8 mg iron-400 mcg-50 mcg (Centrum Silver Women) 1 tab PO .every other day omega 1-tlx-ihq-fish oil 1,200 (144-216) mg (Fish Oil) caps PO rivaroxaban (Xarelto) 20 mg PO DAILY 90 days HPI Comments Details: Carolann returns for follow-up regarding atrial fibrillation. She continues to divide her time between [place] and [place]. 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 History of atrial fibrillation with rapid rate that led to cardioversion. Per patient last only for short time and hence she is being maintained on rate control rather. On beta-blockers/digoxin/Xarelto. According to her, meds are prescribed through her own systems tester in [place]. She also has other issues like bronchiectasis of unknown etiology. Since last seen, she states she is feeling fine. No new complaints. No chest pain or in fact anything cardiac sounding. [facility] Medical History (Updated 01/29/24 @ 11:42 by Anika Huntley MD) Vertigo Hypovitaminosis D Atelectasis Fatigue History of hyperparathyroidism Renal calculi Bronchiectasis History of skin cancer Osteoporosis Atrial fibrillation Surgical History History of basal cell cancer History of parathyroidectomy History of laparoscopic cholecystectomy History of hemorrhoidectomy History of section History of tonsillectomy and adenoidectomy Family History Father Bladder cancer Mother Lung cancer Brother Diabetes Maternal Grandmother Uterine cancer Paternal Grandmother Breast cancer Social History Housing: House Alcohol intake: current Alcohol intake frequency: 0-2 drinks per day Alcohol type: wine Patient Tobacco Use Status: Never used Tobacco e-Cigarette/Vaping Use: Never Used Second Hand Smoke Exposure: No service: No Current occupational status: retired Cognitive needs: No Hearing needs: No Vision needs: Yes Review of Systems ENT Reports dizziness Card Denies chest pain, Denies chest pain at rest, Denies chest pain with activity, Denies rapid heart rate, Denies pedal edema, Denies edema, Denies leg edema, Denies lightheadedness, Denies palpitations, Denies dyspnea, Denies dyspnea on exertion and Denies orthopnea Resp Denies cough, Denies dyspnea and Denies dyspnea on exertion GI Denies hematochezia and Denies change in stool character Musc Denies abnormal gait, Reports limited range of motion, Reports muscle cramps, Denies muscle weakness, Denies numbness, Denies radiating pain into limb, Denies stiffness and Denies tingling Neuro Denies abnormal gait, Reports dizziness, Denies numbness and Denies tingling Endo Denies palpitations Physical Exam Vital Signs: Last Vital Signs Pulse 60 03/03/24 10:18 BP 124/62 03/03/24 10:18 BMI result Body Mass Index 31.6 Const General: comfortable and no acute distress Orientation/consciousness: patient oriented x3 HEENT Other: Unremarkable Head: Yes normal to inspection Neck Neck: Yes normal visual inspection Chest Chest palpation & inspection: normal inspection of the chest Resp Auscultation: clear to auscultation bilaterally Cardio Palpation: normal PMI Heart sounds: S1 normal heart sound present, S2 normal heart sound present, no gallops, no murmurs and no rubs GI Palpation (GI): Soft to palpation Back/Spine/Pelvis Other: unremarkable Skin General skin exam: no rashes or lesions noted Neuro General: patient oriented x3 Extrem General: Yes normal to inspection Psych Mental Status: mental status grossly normal Office Procedures EKG Details: EKG with atrial fibrillation rate of 60/Min; rightward axis and nonspecific ST-T changes. [id number], Complete Assessment & Plan Assessment & Plan (1) Persistent atrial fibrillation: Code(s): I48.19 - Other persistent atrial fibrillation Category: Medical Plan Pertinent data reviewed. Last available echocardiogram with LVEF 55-60%; [id number] mitral regurgitation; mild tricuspid regurgitation and interatrial septal aneurysm. Myocardial perfusion imaging study with artifact from breast attenuation but otherwise unremarkable. In the past, digoxin level was 0.8, based on labs from [place]. Recommend repeat labs but she states she would like to just get that done through her PCP only. Otherwise, stable cardiac status. Coding Level of Care Code Est Pt Level 3 (69640) Diagnoses Persistent atrial fibrillation I48.19 CPT Codes EKG - CPT: 33405-[id number], Complete ([id number])
== END 2024-03-03 10:42 | disposition home or self-care (01) ==
PROVIDERS: PCP Internal Medicine; Visit Provider Internal Medicine
DX: I48.19 Other persistent atrial fibrillation (principal)
CPT/HCPCS: 93010; 99213

== ENCOUNTER → 2024-03-03 10:14 | Outpatient (BNVA) | payer MEDICARE, SELFPAY | PROVIDERS: PCP Internal Medicine; Visit Provider Internal Medicine | DX: I48.19 Other persistent atrial fibrillation (principal); Z79.01 Long term (current) use of anticoagulants; Z79.899 Other long term (current) drug therapy | CPT/HCPCS: 93005; 99212 ==

== ENCOUNTER 2024-06-09 12:53 | Outpatient (REF) | payer MEDICARE, SELFPAY ==
--- NOTE | ~2024-06-09 | MM_ITS ---
EXAMINATION: BONE DENSITOMETRY CLINICAL INDICATION: Unspecified menopausal and perimenopausal disorder. COMPARISON: Previous BD dated 06/05/2022 and baseline BD dated 02/25/2009. TECHNIQUE: Using a [employer] DXA System (software version: 13.1) manufactured by [employer], dual-energy x-ray absorptiometry was performed of the lumbar spine and left hip. The images are of good technical quality. Summary results are attached. FINDINGS: LEFT FEMUR, NECK: Current: BMD 0.721 g/cm2, Z-score 0.4, T-score -2.3, osteopenia. Prior: BMD 0.721 g/cm2. Baseline: BMD 0.771 g/cm2. LEFT FEMUR, TOTAL: Current: BMD 0.649 g/cm2, Z-score -0.2, T-score -2.8, osteoporosis, 5.0% decrease from previous, 14.5% decrease from baseline (<5% change is not significant). Prior: BMD 0.683 g/cm2. Baseline: BMD 0.759 g/cm2. AP SPINE L1-L4: Current: BMD 0.977 g/cm2, Z-score 0.8, T-score -1.7, osteopenia, 5.9% decrease from previous, 0.9% increase from baseline (<5% change is not significant). Prior: BMD 1.038 g/cm2. Baseline: BMD 0.968 g/cm2. IDENTIFIED RISK FACTORS: Osteoporosis, hyperparathyroidism, height loss, history of fracture (adult), menopause. HISTORY OF FRACTURE: Wrist. MEDICATIONS: Calcium supplements or multivitamin, vitamin D, bisphosphonates. MM/XR DEXA axial skeleton IMPRESSION: 1. DIAGNOSIS: Severe osteoporosis based on the lowest T-score value of -2.8 in the total femur and history of fracture applying World Health Organization criteria. 2. 10-YEAR FRACTURE RISK PREDICTION, FRAX: According to the guidelines, FRAX calculation should only be performed on patients in the osteopenia bone density category. Therefore, FRAX was not performed on this patient. 3. Treatment Recommendations: NOF guidelines recommend consideration for treatment in postmenopausal women and men age 50 and older presenting with the following: -A hip or vertebral (clinical or morphometric) fracture. -T-score less than or equal to -2.5 at the femoral neck or spine after appropriate evaluation to exclude secondary causes. -Low bone mass at the hip or spine and a 10-year fracture probability by FRAX of greater than or equal to 3% for hip fracture or greater than or equal to 20% for major osteoporotic fracture based on the [place] adapted WHO algorithm. 4. Other Recommendations: All treatment decisions require clinical judgment and consideration of individual patient factors, including patient preferences, comorbidities, previous drug use, risk factors not captured in the FRAX model (e.g. frailty, falls, vitamin D deficiency, increased bone turnover, interval significant decline in bone density) and possible under or overestimation of fracture risk by FRAX. Additional medical evaluation for secondary cause of low bone mineral density may be appropriate. FUTURE SCAN RECOMMENDATION: People with diagnosed cases of osteoporosis or at high risk for fracture should have regular bone mineral density tests. For patients eligible for Medicare, routine testing is allowed once every 2 years. The testing frequency can be increased to one year for patients who have rapidly progressing disease, those who are receiving or discontinuing medical therapy to restore bone mass, or have additional risk factors. Electronically signed by: Maggy Metzger MD 06/24/2024 08:13 AM EDT
== END 2024-06-09 12:54 | disposition home or self-care (01) ==
LOC: HO.MAMMO 12:53
PROVIDERS: PCP Internal Medicine; Visit Provider Internal Medicine
DX: Z13.820 Encounter for screening for osteoporosis (principal); Z78.0 Asymptomatic menopausal state
CPT/HCPCS: 77080

== ENCOUNTER 2025-02-02 13:05 | Outpatient (AMB) | payer MEDICARE, SELFPAY ==
--- NOTE | 2025-02-02 13:19 | A.OFFPC_ITS ---
Vital Signs 02/02/25 13:20 Height 4 ft Weight 102 lb BMI 31.1 BP 120/74 Blood Pressure Location Lt brachial Position Sitting Intake Visit Reasons: follow up dizziness, giddiness Intake Note: Patient here for a follow up dizziness, giddiness Workers' Compensation Mediator Required: No Accompanied by: Self / Same As Patient Allergies Penicillins [PENICILLINS] Allergy (Mild, Verified 02/02/25 13:27) RASH Medication List - Last Reconciled 02/02/25 by Anika Huntley MD albuterol sulfate 90 mcg/actuation 1 inh inhalation QID PRN 90 days cholecalciferol (vitamin D3) 25 mcg PO DAILY denosumab (Prolia) 60 mg subcut [id number] digoxin 125 mcg PO DAILY flaxseed oil 1,000 mg PO DAILY metoprolol succinate ER 50 mg PO BID hyzixnfv-qji-cwox-FA-vit K-lut 8 mg iron-400 mcg-50 mcg (Centrum Silver Women) 1 tab PO .every other day omega 3-gje-bin-fish oil 1,200 (144-216) mg (Fish Oil) caps PO rivaroxaban (Xarelto) 20 mg PO DAILY 90 days Tobacco use date assessed: 02/02/25 Fall risk assessment: No Falls in past year Last assessed Fall Risk: 02/02/25 Dental Screening Dental Screen Date: 02/02/25 Did you have a dental visit in the last 12 months?: Yes Did you have a dental problem in the last 6 months where you did not have access to dental care?: No Was dental information given to patient?: Patient has dentist HPI HPI Comments History of Present Illness Details The patient is an 84-year-old female presenting with persistent vertigo. The condition has been ongoing and primarily disrupts sleep by rendering the patient unable to rest on her left side, as it induces dizziness. The vertigo was partly addressed through therapy in [place] following an initial ENT evaluation, with ongoing symptoms associated with head movements, particularly when laying down. Management efforts included physical therapy and ENT consultations, which indicated aligned crystals yet persisting dizziness. The symptoms remain unchanged in severity, not leading to significant functional impairment during upright activities. There are no reports of associated nausea. The patient is also being followed for osteoporosis, managed with Prolia injections biannually. She anticipates her next injection in May. Current osteoporosis management appears stable with no further issues reported in relation to bone health. Further, the patient?s medical background is significant for status post-parathyroidectomy, with residual management of endocrine function through existing endocrinology consultations. [facility] Medical History (Updated 02/02/25 @ 13:42 by Anika Huntley MD) Vertigo Hypovitaminosis D Atelectasis Fatigue History of hyperparathyroidism Renal calculi Bronchiectasis History of skin cancer Osteoporosis Atrial fibrillation Surgical History History of basal cell cancer History of parathyroidectomy History of laparoscopic cholecystectomy History of hemorrhoidectomy History of section History of tonsillectomy and adenoidectomy Family History Father Bladder cancer Mother Lung cancer Brother Diabetes Maternal Grandmother Uterine cancer Paternal Grandmother Breast cancer Social History Housing: House Alcohol intake: current Alcohol intake frequency: 0-2 drinks per day Alcohol type: wine Patient Tobacco Use Status: Never used Tobacco e-Cigarette/Vaping Use: Never Used Second Hand Smoke Exposure: No service: No Current occupational status: retired Cognitive needs: No Hearing needs: No Vision needs: Yes Questionnaire PHQ-9 Over the last 2 weeks, how often have you been bothered by any of the following problems? 1. Little interest or pleasure in doing things: not at all 2. Feeling down, depressed, or hopeless: not at all 3. Trouble falling or staying asleep, or sleeping too much: not at all 4. Feeling tired or having little energy: not at all 5. Poor appetite or overeating: not at all 6. Feeling bad about yourself - or that you are a failure or have let yourself or your family down: not at all 7. Trouble concentrating on things, such as reading the newspaper or watching television: not at all 8. Moving or speaking so slowly that other people could have noticed. Or the opposite - being so fidgety or restless that you have been moving around a lot more than usual: not at all 9. Thoughts that you would be better off or of hurting yourself in some way: not at all Total score: 0 Depression Screening Interpretation: Negative Depression Screening Done: Yes 95059 - PHQ-9 Billing: Yes Source: Developed by Drs. Arnol Jauregui, Brannon Solano and colleagues, with an educational flores from [employer]. Thrive Questionnaire Date Thrive assessed: 01/31/25 I am a: Patient What is your living situation today?: I have a steady place to live Within the past 12 months, did the food you bought not last and you didn't have the money to get more?: Never true Within the past 12 months, did you worry whether your food would run out before you got money to buy more?: Never true Do you have trouble paying for medicines?: No Do you have trouble getting transportation to medical appointments?: No Do you have trouble paying your heating and electricity bill?: No Do you have trouble taking care of your child, family member or friend?: No Do you have trouble with day-to-day activities such as bathing, preparing meals, shopping, managing finances, etc.?: No Are you currently unemployed and looking for a job?: No Are you interested in more education?: No Please select the resources that you would like help with: None Currently or been in a relationship where the following occur: No concerns reported THRIVE Score: 0 AUDIT C Alcohol Use Questionnaire (AUDIT-C) 1. How often do you have a drink containing alcohol?: Never Total Score: 0 Score Reviewed/Action Taken: No HERNAN-7 AMB Questionnaire HERNAN-7 Date HERNAN - 7 assessed: 02/02/25 Feeling nervous, anxious, or on edge: 0 = Not at all Not being able to stop or control worryin = Not at all Worrying too much about different things: 0 = Not at all Trouble relaxin = Not at all Being so restless that it is hard to sit still: 0 = Not at all Becoming easily annoyed or irritable: 0 = Not at all Feeling afraid as if something awful might happen: 0 = Not at all Total HERNAN-7 score (0-4 normal; 5-9 mild; 10-14 moderate; 15-21 severe): 0 Source: Developed by Herlinda Shaikh Kurt Kroenke and colleagues, with an educational flores from [employer]. HERNAN-7 Assessment Billing HERNAN-7 Assessment Tool: HERNAN-7 Assessment 27581 Review of Systems Const All systems reviewed & are unremarkable except as noted in HPI and below Card Denies chest pain at rest, Denies chest pain with activity, Denies edema, Denies irregular heart rhythm, Denies claudication, Denies dyspnea, Denies dyspnea on exertion, Denies orthopnea, Denies paroxysmal nocturnal dyspnea and Denies slow heart rate Resp Denies cough, Denies dyspnea and Denies dyspnea on exertion GI Denies abdominal pain, Denies change in bowel habits, Denies excessive flatus, Denies nausea and Denies vomiting Physical exam (Primary Care) Vital Signs: Last Vital Signs BP 120/74 02/02/25 13:20 BMI result Body Mass Index 31.1 Tobacco/Smoking Status: Tobacco use Status Tobacco use date assessed 02/02/25 02/02/25 13:26 Patient Tobacco Use Status Never used Tobacco 02/02/25 13:26 e-Cigarette/Vaping Use Never Used 02/02/25 13:26 PHQ-9: PHQ-9 Score PHQ-9: Total score 0 02/02/25 13:58 Depression Screening Interpretation: Negative Thrive Assessment: Date of Thrive Assessment Date Thrive assessed 01/31/25 02/02/25 13:26 Currently or been in a relationship where the following occur: No concerns reported Resp Effort & Inspection: normal respiratory effort Auscultation: clear to auscultation bilaterally Cardio Jugular venous distension: no JVD Rate: regular rate Rhythm: regular rhythm Heart sounds: S1 normal heart sound present and S2 normal heart sound present Neuro Romberg Test: Negative Extrem General: Yes full ROM Immunizations tetanus-diphtheria toxoids-Td 2 Lf unit-2 Lf unit/0.5 mL IM suspension Performing Provider: Anika Huntley MD [facility] Administered by: JULIA Mejia on 02/02/25 14:02 Dose Route Admin Location Dispensed Lot Number Expiration Date [facility] Religion Department Chair 0.5 mL IM Left Deltoid 0.5 mL [id number] 11/14/26 04169-424-16 [employer] VIS Given Date VIS Provided VIS Publication Date 02/02/25 Single Vaccine 21 Eligibility Eligibility Date Funding Source Not [facility] Eligible 02/02/25 Private Coding Level of Care Code Est Pt Level 4 (60740) Complex EM visit Add On G2211 Diagnoses Benign paroxysmal positional vertigo of left ear H81.12 Persistent atrial fibrillation I48.19 Bronchiectasis without complication J47.9 Bronchiectasis type: uncomplicated Age-related osteoporosis without current pathological fracture M81.0 Osteoporosis type: age-related Presence of current pathological fracture: without current pathological fracture Additional Codes PHQ-9 - 34613 - PHQ-9 Billing: Yes ([id number]) HERNAN-7 Assessment Billing - HERNAN-7 Assessment Tool: HERNAN-7 Assessment 90866 ([id number]) Time Spent (min) 28 Assessment & Plan Assessment & Plan (1) Benign paroxysmal positional vertigo of left ear: Code(s): H81.12 - Benign paroxysmal vertigo, left ear Category: Medical (2) Persistent atrial fibrillation: Code(s): I48.19 - Other persistent atrial fibrillation Category: Medical (3) Bronchiectasis: Code(s): J47.9 - Bronchiectasis, uncomplicated Category: Medical Qualifiers: Bronchiectasis type: uncomplicated Qualified Code(s): J47.9 - Bronchiectasis, uncomplicated (4) Osteoporosis: Code(s): M81.0 - Age-related osteoporosis without current pathological fracture Category: Medical Qualifiers: Osteoporosis type: age-related Presence of current pathological fracture: without current pathological fracture Qualified Code(s): M81.0 - Age- related osteoporosis without current pathological fracture Plan I have structured the treatment plan ensuring comprehensive management of vertigo through physical therapy, reinforced ENT evaluation, and ongoing observation of Bronchiectasis managed effectively with bronchodilators. For osteoporosis, the continuity of Prolia injections is planned. Reassessment of atrial flutter via cardiology follow-up is vital to maintain cardiac health. Immunization schedules were completed with tetanus updated today. Continuous management of allergies is emphasized, underscored by avoidance of penicillin. Patient was informed and verbally consented to the use of an ambient scribe for clinic note documentation during this visit. I discussed with the patient the need for steady follow-up with an ENT specialist for undetermined vertigo symptomatology and advised resuming therapy sessions focused on vertiginous symptoms. I reviewed potential outcomes, insisting upon cautionary steps like avoidance of certain head positions known to precipitate dizziness. Immunization history was noted, ensuring she is up-to-date with necessary vaccinations including today?s tetanus booster. Awareness about potential allergic reactions was carefully discussed pertaining to penicillin with assurance of alternative medications should the need arise. Explanation about atrial flutter indicated constant cardiological oversight, and I advised keeping current appointments to maintain optimal cardiovascular health. Orders: Orders PT Evaluation and Treatment Today H81.12 - Benign paroxysmal vertigo, left ear Td State Immunization Today Z23 - Encounter for immunization Referrals Ear/Nose/Throat Referral H81.12 - Benign paroxysmal vertigo, left ear Medications: New cholecalciferol (vitamin D3) 125 mcg PO DAILY 90 days 90 caps 0RF denosumab (Prolia) 60 mg subcut [id number] 30 days 1 mL 0RF Patient Instructions: - Attend referred ENT consultation in [place] as scheduled. - Begin or continue physical therapy focusing on vertigo management. - Take Prolia injection in May as planned. - Use bronchodilators as needed for bronchiectasis symptoms. - Avoid penicillin to prevent any allergic reaction. - Keep follow-ups with material distributor for atrial flutter monitoring. - Ensure vaccinations are up to date. If unsure or scheduled for other vaccines, consult with healthcare providers. - Seek immediate care for severe dizziness, falls, or unmanageable symptoms. - Maintain active involvement in understanding upcoming medical appointments and follow-ups.
[2025-02-02 13:20] VITALS: BP 120/74; BMI 31.1
== END 2025-02-02 14:06 | disposition home or self-care (01) ==
LOC: HO.HMCH 13:05
PROVIDERS: PCP Internal Medicine; Visit Provider Internal Medicine
DX: H81.12 Benign paroxysmal vertigo, left ear (principal); I48.19 Other persistent atrial fibrillation; J47.9 Bronchiectasis, uncomplicated; M81.0 Age-related osteoporosis without current pathological fracture; Z23 Encounter for immunization

== ENCOUNTER → 2025-02-02 13:05 | Outpatient (BNVA) | payer MEDICARE, SELFPAY | PROVIDERS: PCP Internal Medicine; Visit Provider Internal Medicine | DX: Z23 Encounter for immunization (principal); H81.12 Benign paroxysmal vertigo, left ear; I48.19 Other persistent atrial fibrillation; J47.9 Bronchiectasis, uncomplicated; M81.0 Age-related osteoporosis without current pathological fracture | CPT/HCPCS: 90471; 90714; 96127; 99212 ==

== ENCOUNTER 2025-03-08 13:58 | Outpatient (RCR) | payer MEDICARE, SELFPAY ==
[2025-02-15 10:08] VITALS: BP 150/65; PULSE 78
--- NOTE | 2025-02-15 12:03 | MHC.PT.EP ---
[facility] [place] Office [place] Office [place] Office [address] Jenny Funk [address] [phone] F: [phone] F: [phone] F: [phone] F: [phone] Physical Therapy Plan of Care Date of Evaluation: 02/15/25 Date of Surgery: NA Diagnosis: BPPV, L ear Assessment: Carolann is a 84 year old female who is referred for BPPV. She reports of having symptoms of vertigo for over 6 months. She reports of having room spinning dizziness with rolling to the L, looking up and down. She denies having nausea. On PT examination she presented with intact visual tracking, intact saccades and smooth pursuit, negative VBI and negative head thrust. She was positive for BPPV in L lakhani pike and L roll test but had very long latency. She lives with her and is independent with all ADLS but does them slowly. She would benefit from skilled PT to address the aforementioned impairments and improve tolerance to functional activities. Frequency and Duration: The patient will be seen 2/week for 4 weeks Short Term Goals: Fdc Goals: Patient to be educated on symptoms and indications to return to therapy when needed min 4 weeks. Pt will be negative for nystagmus or reports of vertigo in all diagnostic positions bilaterally to resolution of BPPV in 4 weeks. Patient to be able to functionally move in all planes and directions without provocation of dizziness to show return to PLOF in 4 weeks. Treatment Plan: Modalities to reduce pain, spasms and effusion. Manual therapy to restore motion and function. Therapeutic exercise to improve strength and flexibility. Neuromuscular re-education for posture and balance. Therapeutic activities to return to functional activities of daily living. Electronically signed by: Sandy Rainey, PT DPT Please sign and return to therapist. Thank you for your referral.
--- NOTE | 2025-04-21 14:32 | MHC.PT.DC ---
[facility] Office [place] Office [place] Office [address] [phone] F: [phone] F: [phone] F: [phone] F: [phone] Physical Therapy Discharge Report Diagnosis: BPPV, L ear Date of Surgery: NA Date of Evaluation: 02/15/25 Date of Discharge: 04/21/25 Treatments to Date: 7 Cancellations to Date: 0 No Shows to Date: 0 Discharge Status: Achieved Goals Discharge Summary: Carolann attended 7 PT visits and was feeling better. She has not had any symptoms of vestibular hypofunction in over a month. She is therefore being d/c from PT. Electronically signed by: Sandy Rainey, PT DPT Please sign and return to therapist. Thank you for your referral.
== END 2025-04-21 14:32 | disposition home or self-care (01) ==
LOC: HO.PT 13:58
PROVIDERS: PCP Internal Medicine; Visit Provider Internal Medicine
DX: H81.12 Benign paroxysmal vertigo, left ear (principal)
CPT/HCPCS: 95992; 97112; 97161

== ENCOUNTER 2025-04-05 10:50 | Outpatient (REF) | payer MEDICARE, SELFPAY ==
[2025-04-05 14:21] LABS: Appearance Urine Clear; Glucose Urine UA Negative (Negative); PH 7.0 (5.0-9.0); Specific Gravity - Urine 1.020 (1.005-1.025)
[2025-04-05 14:32] LABS: Alanine Aminotransferase 22 U/L (0-31); Albumin Level 3.8 g/dL (3.5-5.0); Alkaline Phosphatase 86 U/L (39-117); Anion Gap 10 (12-20); Aspartate Amino Transferase 32 U/L (5-31); Blood Urea Nitrogen 15 mg/dL (9-16); Calcium 9.6 mg/dL (8.4-10.2); Carbon Dioxide 30 mmol/L (22-29); Chloride 107 mmol/L (96-108); Cholesterol 159 mg/dL (<200); Estimated Glomerular Filt Rate > 60; HDL Cholesterol 59 mg/dL (>40); Potassium 4.5 mmol/L (3.3-5.1); Sodium 142 mmol/L (135-145); Total Protein 6.5 g/dL (6.5-8.0); Triglycerides 54 mg/dL (<150)
[2025-04-05 14:46] LABS: Digoxin 0.5 ng/mL (0.8-2.0)
== END 2025-04-05 10:51 | disposition home or self-care (01) ==
LOC: HO.WFDLDS 10:50
PROVIDERS: Visit Provider Internal Medicine
DX: I48.19 Other persistent atrial fibrillation (principal); R30.0 Dysuria; E78.5 Hyperlipidemia, unspecified; E55.9 Vitamin D deficiency, unspecified
CPT/HCPCS: 36415; 80053; 80061; 80162; 81003; 82306

== ENCOUNTER 2025-05-26 13:32 | Outpatient (AMB) | payer MEDICARE, SELFPAY ==
--- NOTE | 2025-05-26 14:03 | AM.OFFVISNUR ---
Intake Visit Reasons: vaccine Allergies Penicillins (PENICILLINS) Allergy (Mild, Verified 02/02/25 13:27) RASH Office Meds Prolia 60 mg/mL subcutaneous syringe Performing Provider: Anika Huntley MD Performing [facility] Administered by: Marian Weaver LPN on 05/26/25 14:04 Dose Route Admin Location Dispensed Lot Number Expiration Date [facility] [employer] Engine [employer] 60 mg subcut left arm 1 mL [id number] 05/16/27 76452-824-75 AMGEN Total Dispensed Waste 1 mL 0 % Assessment & Plan Assessment & Plan Orders: Orders AMB Denosumab Injection Patient Supplied Today M81.0 - Age-related osteoporosis without current pathological fracture Coding
== END 2025-05-26 14:05 | disposition home or self-care (01) ==
PROVIDERS: PCP Internal Medicine; Visit Provider Internal Medicine
DX: M81.0 Age-related osteoporosis without current pathological fracture (principal)

== ENCOUNTER → 2025-05-26 13:32 | Outpatient (BNVA) | payer MEDICARE, SELFPAY | PROVIDERS: PCP Internal Medicine; Visit Provider Internal Medicine | DX: M81.0 Age-related osteoporosis without current pathological fracture (principal) | CPT/HCPCS: 96372; J0897 ==

== ENCOUNTER 2025-05-31 12:31 | Outpatient (AMB) | payer MEDICARE, SELFPAY ==
[2025-05-31 12:35] VITALS: BP 112/60; PULSE 77; BMI 30.3
--- NOTE | 2025-05-31 12:35 | A.OFFVIS_ITS ---
Vital Signs 05/31/25 12:35 Height 4 ft Weight 99 lb 3.328 oz BMI 30.3 BP 112/60 Blood Pressure Location Lt brachial Position Sitting Pulse 77 Pulse Source Monitor Intake Visit Reasons: 1 yr f/up r/s 04-21-25 Allergies Penicillins (PENICILLINS) Allergy (Mild, Verified 02/02/25 13:27) RASH Medication List - Last Reconciled 05/31/25 by Mina Brown MD albuterol sulfate 90 mcg/actuation 1 inh inhalation QID PRN 90 days cholecalciferol (vitamin D3) 125 mcg PO DAILY 90 days denosumab (Prolia) 60 mg subcut [id number] 30 days digoxin 125 mcg PO DAILY flaxseed oil 1,000 mg PO DAILY meclizine 25 mg PO BID PRN 30 days metoprolol succinate ER 50 mg PO BID ubvcalgv-gul-xoit-FA-vit K-lut 8 mg iron-400 mcg-50 mcg (Centrum Silver Women) 1 tab PO .every other day omega 6-sid-cwm-fish oil 1,200 (144-216) mg (Fish Oil) caps PO rivaroxaban (Xarelto) 20 mg PO DAILY 90 days HPI Comments Details: Carolann returns for follow-up regarding atrial fibrillation. She continues to divide her time between [place] and [place]. 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 History of atrial fibrillation with rapid rate that led to cardioversion. Per patient lasted only for short time and hence she is being maintained on rate control rather. On beta-blockers/digoxin/Xarelto. She also has other issues like bronchiectasis of unknown etiology. Over the last year, she apparently has been diagnosed with the vertigo. She states that each time she turns her head in his sudden position she feels that way. She has done physical therapy for that but did not feel better. When I questioned her about what else brings on her symptoms, she states that happens also well getting up from lying down. Hence not clear if there is any element of orthostasis or not. [facility] Medical History Vertigo Hypovitaminosis D Atelectasis Fatigue History of hyperparathyroidism Renal calculi Bronchiectasis History of skin cancer Osteoporosis Atrial fibrillation Surgical History History of basal cell cancer History of parathyroidectomy History of laparoscopic cholecystectomy History of hemorrhoidectomy History of section History of tonsillectomy and adenoidectomy Family History Father Bladder cancer Mother Lung cancer Brother Diabetes Maternal Grandmother Uterine cancer Paternal Grandmother Breast cancer Social History Housing: House Alcohol intake: current Alcohol intake frequency: 0-2 drinks per day Alcohol type: wine Patient Tobacco Use Status: Never used Tobacco e-Cigarette/Vaping Use: Never Used Second Hand Smoke Exposure: No service: No Current occupational status: retired Cognitive needs: No Hearing needs: No Vision needs: Yes Review of Systems Const Denies weakness ENT Denies dizziness Card Denies chest pain, Denies chest pain with activity, Denies syncope, Denies rapid heart rate, Denies pedal edema, Denies edema, Denies leg edema, Denies li ghtheadedness, Denies palpitations, Denies dyspnea, Denies dyspnea on exertion and Denies orthopnea Resp Denies cough, Denies dyspnea and Denies dyspnea on exertion GI Denies hematochezia and Denies change in stool character Musc Denies abnormal gait, Denies muscle cramps, Denies muscle weakness, Denies numbness, Denies radiating pain into limb and Denies tingling Neuro Denies abnormal gait, Denies dizziness, Denies syncope, Denies numbness, Denies tingling and Denies weakness Endo Denies palpitations Physical Exam Vital Signs: Last Vital Signs Pulse 77 05/31/25 12:35 BP 112/60 05/31/25 12:35 BMI result Body Mass Index 30.3 Const General: comfortable and no acute distress Orientation/consciousness: patient oriented x3 HEENT Other: Unremarkable Head: Yes normal to inspection Neck Neck: Yes normal visual inspection Chest Chest palpation & inspection: normal inspection of the chest Resp Auscultation: clear to auscultation bilaterally Cardio Palpation: normal PMI Heart sounds: S1 normal heart sound present, S2 normal heart sound present, no gallops, no murmurs and no rubs GI Palpation (GI): Soft to palpation Back/Spine/Pelvis Other: unremarkable Skin General skin exam: no rashes or lesions noted Neuro General: patient oriented x3 Extrem General: Yes normal to inspection Psych Mental Status: mental status grossly normal Office Procedures EKG Details: EKG with atrial fibrillation at a rate of 77/Min; rightward axis; low-voltage QRS complexes. [id number], Complete Assessment & Plan Assessment & Plan (1) Persistent atrial fibrillation: Code(s): I48.19 - Other persistent atrial fibrillation Category: Medical (2) Vertigo: Code(s): R42 - Dizziness and giddiness Category: Medical Plan Pertinent data reviewed. [id number] 65-70%. Severely dilated left atrium. Unremarkable valvular structure and function. Myocardial perfusion imaging study with artifact from breast attenuation but otherwise unremarkable. Digoxin level within range. Overall, with regard to the atrial fibrillation itself, she is well controlled and there are no active concerns. With regard to the question of vertigo, she is wondering if any of her medications are causing this. In case there is any orthostatic component, then decrease in the beta-memo dose might help. She is on metoprolol 50 mg b.i.d. as listed and advised her to try just once a day. If she feels better, then possibly continue that dose. Also advised her to monitor her vitals to ensure there is no tachycardia or rebound hypertension. She will need a Holter monitor for follow-up as well as the office visit but she is traveling to [place] very soon and hence advised her to follow up with [place] exceptional student education teacher. Discussed with the daughter who came for appointment. Total time spent including review of data, counseling, documentation, coordination of care-32 minutes. Coding Level of Care Code Est Pt Level 4 (04556) Complex EM visit Add On G2211 Diagnoses Persistent atrial fibrillation I48.19 Vertigo R42 CPT Codes EKG - CPT: 77436-[id number], Complete ([id number])
== END 2025-05-31 13:07 | disposition home or self-care (01) ==
LOC: HO.HCS 12:32
PROVIDERS: PCP Internal Medicine; Visit Provider Internal Medicine
DX: I48.19 Other persistent atrial fibrillation (principal); R42 Dizziness and giddiness
CPT/HCPCS: 93010; 99214; G2211

== ENCOUNTER → 2025-05-31 12:31 | Outpatient (BNVA) | payer MEDICARE, SELFPAY | PROVIDERS: PCP Internal Medicine; Visit Provider Internal Medicine | DX: R42 Dizziness and giddiness (principal); I48.19 Other persistent atrial fibrillation | CPT/HCPCS: 93005; 99212 ==

== ENCOUNTER 2025-06-21 11:07 | Outpatient (RCR) | payer MEDICARE, SELFPAY ==
[2025-06-21 11:14] VITALS: BP 140/61; PULSE 64
--- NOTE | 2025-06-21 12:03 | MHC.PT.EP ---
[facility] [place] Office [place] Office [place] Office [address] [phone] F: [phone] F: [phone] F: [phone] F: [phone] Physical Therapy Plan of Care Date of Evaluation: 06/21/25 Date of Surgery: NA Diagnosis: Benign paroxysmal vertigo, L ear Assessment: Carolann is a 84 year old female who is referred to PT for BPPV, L side . She has been to our clinic in the past for BPPV and felt significantly better however she does not feel 100%. She currently reports of having dizziness with looking up and quick head turns. Her symptoms last only for a few seconds. She denies having any nausea or vomiting. On PT examination she presented with intact saccades, smooth pursuit, negative DVA, negative head thrust, negative VBI, negative for BPPV in B lakhani pikes and B roll test and good static and dynamic balance. She currently does not present with any symptoms of hypofunction on testing but sounds like she had mild hypofunction. She would benefit from trialing adaptation and habituation exercise at home. She was advised to return to PT in case of return to symptoms. Frequency and Duration: The patient will be seen 1/week for 2 weeks Short Term Goals: Group Home Goals: 1. Pt will be independent with all balance exercise and be able to perform them safely. Treatment Plan: Modalities to reduce pain, spasms and effusion. Manual therapy to restore motion and function. Therapeutic exercise to improve strength and flexibility. Neuromuscular re-education for posture and balance. Therapeutic activities to return to functional activities of daily living. Electronically signed by: Sandy Rainey PT DPT Please sign and return to therapist. Thank you for your referral.
--- NOTE | 2025-08-17 13:29 | MHC.PT.DC ---
[facility] [place] Office [place] Office [place] Office [address] [phone] F: [phone] F: [phone] F: [phone] F: [phone] Physical Therapy Discharge Report Diagnosis: Benign paroxysmal vertigo, L ear Date of Surgery: NA Date of Evaluation: 06/21/25 Date of Discharge: 08/17/25 Treatments to Date: 1 Cancellations to Date: 0 No Shows to Date: 0 Discharge Status: Achieved Goals Improved Function Discharge Summary: Carolann came in for evaluation to re check for presence of vestibular dysfunction. She did not have any vestibular dysfunction. No PT indicated at this time. Electronically signed by: Sandy Rainey, PT DPT Please sign and return to therapist. Thank you for your referral.
== END 2025-08-17 13:29 | disposition home or self-care (01) ==
LOC: HO.PT 11:07
PROVIDERS: PCP Internal Medicine; Visit Provider Internal Medicine
DX: H81.12 Benign paroxysmal vertigo, left ear (principal)
CPT/HCPCS: 97112; 97161